=== PATIENT | female | born 1945 | race Caucasian/White ===

== ENCOUNTER 2016-10-08 10:12 | Emergency (ER) | payer BC, MEDICARE ==
[~2016-10-08] VITALS: Ht 177.8 cm; Wt 80.0 kg
[2016-10-08 11:41] VITALS: BP 156/67
== END 2016-10-08 11:45 | disposition home or self-care (01) ==
LOC: ER 11:05
DX: S50.862A Insect bite (nonvenomous) of left forearm, initial encounter (principal); L03.114 Cellulitis of left upper limb; W57.XXXA Bitten or stung by nonvenomous insect and other nonvenomous arthropods, initial encounter; Y93.89 Activity, other specified; Y92.9 Unspecified place or not applicable; I48.91 Unspecified atrial fibrillation; J44.9 Chronic obstructive pulmonary disease, unspecified; Z86.73 Personal history of transient ischemic attack (TIA), and cerebral infarction without residual deficits; Z85.3 Personal history of malignant neoplasm of breast; Z98.890 Other specified postprocedural states; F17.211 Nicotine dependence, cigarettes, in remission
CPT/HCPCS: 99283

== ENCOUNTER → 2017-07-24 | Outpatient (CLI) | payer MEDICARE, BC | END | disposition home or self-care (01) | LOC: MAMMO 12:06 | PROVIDERS: ATTEND Internal Medicine Critical Care Medicine | DX: R92.8 Other abnormal and inconclusive findings on diagnostic imaging of breast (principal) | CPT/HCPCS: 77066 ==